=== PATIENT | female | born 1985 | race Two or more races ===

== ENCOUNTER 2016-06-04 17:15 | Emergency (ER) | payer OTHER ==
[2016-06-04 18:05] VITALS: BP 121/73
--- NOTE | 2016-06-04 18:36 | UC ---
FLU HPI - HPI Summary HPI Summary: THREE DAYS OF FEVER, COUGH RUNNY NOSE. FEVER 103.5F. PATIENTT IS 12 WEEKS . - History of Current Complaint Chief Complaint: UCGeneralIllness Stated Complaint: FEVER/CONGESTION/COUGH/ACHY 3 MONTHS PREG Time Seen by Provider: 06/04/16 18:08 Hx Obtained From: Patient Hx Last Menstrual Period: one week ago ?: Yes Onset/Duration: Sudden Onset, Lasting Days, Still Present Severity Currently: Moderate Severity Initially: Moderate Associated Signs & Symptoms: Positive: F/C, Cough, Nasal Congestion - Risk Factors Influenza Risk Factors: Negative - Allergy/Home Medications Allergies/Adverse Reactions: Allergies Allergy/AdvReac Type Severity Reaction Status Date / Time Eggs or Egg-derived Products Allergy Rash Verified 06/04/16 18:05 Sulfa Antibiotics Allergy Rash Verified 06/04/16 18:05 beets Allergy Altered Uncoded 06/04/16 18:05 Mental Status cherries Allergy Rash Uncoded 06/04/16 18:05 dairy Allergy Vomiting Uncoded 06/04/16 18:05 honey Allergy GI Upset Uncoded 06/04/16 18:05 Home Medications: Home Medications Vit W/ Ferrous Fumara [ Complete] 1 tab PO DAILY 06/04/16 [ History Confirmed 06/04/16] PMH/Surg Hx/FS Hx/Imm Hx Previously Healthy: Yes Endocrine History Of: Denies: Diabetes Cardiovascular History Of: Denies: Hypertension, Pacemaker/ICD, Congestive Heart Failure Respiratory History Of: Reports: Asthma Denies: COPD, Bronchitis, Pulmonary Embolism GI/ History Of: Denies: Gastroesophageal Reflux, Renal Disease Neurological History Of: Denies: TIA Psychological History Of: Denies: Anxiety Cancer History Of: Denies: Lung Cancer - Surgical History Surgical History: Yes Surgery Procedure, Year, and Place: umbilical hernia repair - Family History Known Family History: Positive: None - Social History Occupation: Employed Full-time Lives: With Family Alcohol Use: None Substance Use Type: None Smoking Status (MU): Never Smoked Tobacco Review of Systems Constitutional: Fever, Chills, Fatigue Skin: Negative Eyes: Negative ENT: Nasal Discharge Respiratory: Cough Cardiovascular: Negative Gastrointestinal: Negative Genitourinary: Negative Motor: Negative Neurovascular: Negative Musculoskeletal: Myalgia Neurological: Negative Psychological: Negative All Other Systems Reviewed And Are Negative: Yes Physical Exam Triage Information Reviewed: Yes Appearance: No Pain Distress, Well-Nourished, Ill-Appearing - MILD Vital Signs: Initial Vital Signs Temp 99.6 F 06/04/16 18:02 Pulse 130 06/04/16 18:02 Resp 16 06/04/16 18:02 BP 121/73 06/04/16 18:02 Pulse Ox 100 06/04/16 18:02 Vital Signs Reviewed: Yes Eye Exam: Normal ENT Exam: Normal ENT: Positive: Normal ENT inspection, Hearing grossly normal, Pharynx normal, TMs normal Dental Exam: Normal Neck exam: Normal Neck: Positive: Supple, Nontender, No Lymphadenopathy Respiratory Exam: Normal Respiratory: Positive: Chest non-tender, Lungs clear, Normal breath sounds, No respiratory distress, No accessory muscle use Cardiovascular Exam: Normal Cardiovascular: Positive: RRR, No Murmur, Pulses Normal Abdominal Exam: Normal Musculoskeletal Exam: Normal Musculoskeletal: Positive: Strength Intact Neurological Exam: Normal Psychological Exam: Normal Psychological: Positive: Normal Response To Family Skin Exam: Normal Flu Course/Dx - Differential Dx/Diagnosis Differential Diagnosis/HQI/PQRI: Influenza, RSV, Upper Respiratory Infection Provider Diagnoses: INFLUENZA. 12 WEEKS Discharge - Discharge Plan Condition: Stable Disposition: HOME Prescriptions: Oseltamivir CAP* [Tamiflu CAP*] 75 mg PO BID #10 cap Patient Education Materials: Influenza (ED) Referrals: Chidi Nicholas MD [Primary Care Provider] -
== END 2016-06-04 18:37 | disposition home or self-care (01) ==
LOC: UCCORT 17:15
DX: O26.891 Other specified pregnancy related conditions, first trimester (principal); J11.1 Influenza due to unidentified influenza virus with other respiratory manifestations; Z3A.14 14 weeks gestation of pregnancy; J45.909 Unspecified asthma, uncomplicated; Z88.2 Allergy status to sulfonamides
CPT/HCPCS: 87502; 99212; G0463

== ENCOUNTER 2016-07-12 11:56 | Emergency (ER) | payer OTHER ==
[2016-07-12 12:20] VITALS: BP 111/68
--- NOTE | 2016-07-12 12:31 | UC ---
Lower Extremity/Ankle HPI - HPI Summary HPI Summary: At work today pulled out a cutting board and a different one fell out and fell onto R foot. Pain over big toe and next two toes, also distal foot. - History of Current Complaint Chief Complaint: UCLowerExtremity Stated Complaint: FOOT INJURY Time Seen by Provider: 07/12/16 12:24 Hx Obtained From: Patient Hx Last Menstrual Period: 02/23/16 ?: Yes Onset/Duration: Sudden Onset Severity Initially: Moderate Severity Currently: Mild Aggravating Factor(s): Standing, Ambulation Alleviating Factor(s): Rest Able to Bear Weight: Yes Related History: Occupational Injury - Allergies/Home Medications Allergies/Adverse Reactions: Allergies Allergy/AdvReac Type Severity Reaction Status Date / Time Eggs or Egg-derived Products Allergy Rash Verified 06/04/16 18:05 Sulfa Antibiotics Allergy Rash Verified 06/04/16 18:05 beets Allergy Altered Uncoded 06/04/16 18:05 Mental Status cherries Allergy Rash Uncoded 06/04/16 18:05 dairy Allergy Vomiting Uncoded 06/04/16 18:05 honey Allergy GI Upset Uncoded 06/04/16 18:05 PMH/Surg Hx/FS Hx/Imm Hx Endocrine History Of: Denies: Diabetes, Thyroid Disease Cardiovascular History Of: Denies: Cardiac Disorders, Hypertension, Pacemaker/ICD, Congestive Heart Failure Respiratory History Of: Reports: Asthma Denies: COPD, Bronchitis, Pulmonary Embolism GI/ History Of: Denies: Gastroesophageal Reflux, Ulcer, Renal Disease Neurological History Of: Denies: TIA Psychological History Of: Denies: Anxiety Cancer History Of: Denies: Lung Cancer - Surgical History Surgical History: Yes Surgery Procedure, Year, and Place: umbilical hernia repair - Family History Known Family History: Positive: None - Social History Lives: With Family Alcohol Use: None Substance Use Type: None Smoking Status (MU): Never Smoked Tobacco Review of Systems Constitutional: Negative Skin: Negative Eyes: Negative ENT: Negative Respiratory: Negative Cardiovascular: Negative Gastrointestinal: Negative Genitourinary: Negative Motor: Negative Neurovascular: Negative Musculoskeletal: Arthralgia - R foot Neurological: Negative Psychological: Negative All Other Systems Reviewed And Are Negative: Yes Physical Exam Triage Information Reviewed: Yes Appearance: Well-Appearing, No Pain Distress, Well-Nourished Vital Signs: Initial Vital Signs Temp 98.6 F 07/12/16 12:07 Pulse 99 07/12/16 12:07 Resp 16 07/12/16 12:07 BP 111/68 07/12/16 12:07 Pulse Ox 100 07/12/16 12:07 Vital Signs Reviewed: Yes Eye Exam: Normal Eyes: Positive: Conjunctiva Clear ENT Exam: Normal ENT: Positive: Normal ENT inspection, Hearing grossly normal, Pharynx normal, TMs normal Dental Exam: Normal Neck exam: Normal Neck: Positive: Supple, Nontender, No Lymphadenopathy Respiratory Exam: Normal Respiratory: Positive: Chest non-tender, Lungs clear, Normal breath sounds, No respiratory distress, No accessory muscle use Cardiovascular Exam: Normal Cardiovascular: Positive: RRR, No Murmur Musculoskeletal Exam: Other - minimal tenderness over R toes 1-3 and MTs 1-3. No bruising or swelling. Neurological Exam: Normal Neurological: Positive: Alert Psychological Exam: Normal Skin Exam: Normal Lower Extremity Course/Dx - Differential Dx/Diagnosis Provider Diagnoses: R foot contusion Discharge - Discharge Plan Condition: Stable Disposition: HOME Patient Education Materials: Foot Contusion (ED) Forms: *Work Release Referrals: Chidi Nicholas MD [Primary Care Provider] -
--- NOTE | 2016-07-12 13:01 | RAD ---
HISTORY: Right foot, COMPARISONS: None VIEWS: 2, Frontal and lateral views of the right foot FINDINGS: BONE DENSITY: Normal. BONES: There is no displaced fracture. There are calcaneal enthesophytes JOINTS: There is no arthropathy. ALIGNMENT: There is no dislocation. SOFT TISSUES: Unremarkable. OTHER FINDINGS: None. IMPRESSION: NO ACUTE OSSEOUS INJURY. IF SYMPTOMS PERSIST, RECOMMEND REPEAT IMAGING.
== END 2016-07-12 13:08 | disposition home or self-care (01) ==
LOC: UCEAST 11:56
DX: S90.31XA Contusion of right foot, initial encounter (principal); W20.8XXA Other cause of strike by thrown, projected or falling object, initial encounter; Y93.9 Activity, unspecified; Y99.0 Civilian activity done for income or pay
CPT/HCPCS: 99212; G0463

== ENCOUNTER 2016-11-28 08:15 | Inpatient (IN) | payer OTHER ==
[2016-11-28] MEDS ORDERED: Oxytocin in LR* 20 UNITS/1,000 ML BAG IVPB ONE (19:53)
[2016-11-28] MEDS ORDERED: Oxytocin in LR* 20 UNITS/1,000 ML BAG IVPB SCH (20:00)
[2016-11-28 20:24] LABS: Hematocrit 31 % (35-47); Hemoglobin 10.6 g/dl (12.0-16.0); Mean Corpuscular HGB Conc 35 g/dl (31-36); Mean Corpuscular Hemoglobin 30 pg (27-31); Mean Corpuscular Volume 87 fL (80-97); Mean Platelet Volume 7 um3 (7.4-10.4); Red Blood Count 3.53 10^6/ul (4.0-5.4); Red Cell Distribution Width 14 % (10.5-15); White Blood Count 11.4 10^3/ul (3.5-10.8)
[2016-11-28] MEDS ORDERED: OBEPIDURAL* 250 ML ONE (23:42)
[2016-11-29] MEDS ORDERED: Phenylephrine IV* 40 MCG/ML 10 ML SYRINGE IV PUSH PRN ×2 (00:27)
[2016-11-29] MEDS ORDERED: Famotidine TAB* 20 MG PO PRN (00:27)
[2016-11-29] MEDS ORDERED: EPHEDrine (Pressors)* 50 MG/ML VIAL IV PUSH PRN (00:27)
[2016-11-29] MEDS ORDERED: Sodium Citrate/Citric Acid* 15 ML UDC PO PRN (00:27)
[2016-11-29] MEDS ORDERED: OBEPIDURAL* 250 ML EPIDURAL SCH (01:00)
[2016-11-29] MEDS ORDERED: Ibuprofen TAB* 600 MG PO PRN (04:50)
[2016-11-29] MEDS ORDERED: Witch Hazel PAD* JAR TOPICAL PRN (04:50)
[2016-11-29] MEDS ORDERED: Glycerin ADULT SUPP PR PRN (04:50)
[2016-11-29] MEDS ORDERED: Oxytocin in LR* 20 UNITS/1,000 ML BAG IVPB SCH (05:00)
[2016-11-29] MEDS: Acetaminophen TAB* 325 MG PO PRN ×3 (06:50→17:59)
[2016-11-29] MEDS ORDERED: Simethicone TAB* 80 MG TAB.CHEW PO SCH (08:30)
[2016-11-29] MEDS: Docusate CAP* 100 MG PO SCH ×3 (09:18→20:48)
[2016-11-29] MEDS: Dibucaine 1% 28.35 GM TUBE PR PRN (20:49)
[2016-11-30] MEDS: Acetaminophen TAB* 325 MG PO PRN ×3 (00:23→12:48)
[2016-11-30 06:35] LABS: Hematocrit 26 % (35-47); Hemoglobin 8.6 g/dl (12.0-16.0); Mean Corpuscular HGB Conc 34 g/dl (31-36); Mean Corpuscular Hemoglobin 30 pg (27-31); Mean Corpuscular Volume 89 fL (80-97); Mean Platelet Volume 7 um3 (7.4-10.4); Red Blood Count 2.89 10^6/ul (4.0-5.4); Red Cell Distribution Width 14 % (10.5-15); White Blood Count 10.7 10^3/ul (3.5-10.8)
[2016-11-30] MEDS ORDERED: Ferrous Gluconate TAB* 324 MG TAB PO SCH (09:00)
[2016-11-30] MEDS: Docusate CAP* 100 MG PO SCH (09:45)
[2016-11-30] MEDS ORDERED: RHO D Immune Globulin (HUMAN)* 300 MCG = 1,500 I.U. INJ IM ONE (11:31)
[2016-12-01] MEDS: Docusate CAP* 100 MG PO SCH ×3 (00:51→14:53)
[2016-12-01] MEDS: Acetaminophen TAB* 325 MG PO PRN (00:51)
[2016-12-01 08:25] VITALS: BP 102/69
[2016-12-01] MEDS: Dibucaine 1% 28.35 GM TUBE PR PRN (08:58)
== END 2016-12-01 18:40 | disposition home or self-care (01) | DRG 775 ==
LOC: MCHOBOUT 08:15 → MCHOB 08:46
PROVIDERS: ADMIT Midwife; ATTEND Midwife
PROC: 10E0XZZ Delivery of Products of Conception, External Approach (ICD-10-PCS; principal; 2016-11-28)
PROC: 0HQ9XZZ Repair Perineum Skin, External Approach (ICD-10-PCS; 2016-11-28)
DX: O48.0 Post-term pregnancy (principal); O99.344 Other mental disorders complicating childbirth; D64.9 Anemia, unspecified; F41.8 Other specified anxiety disorders; O70.0 First degree perineal laceration during delivery; F43.10 Post-traumatic stress disorder, unspecified; Z88.2 Allergy status to sulfonamides; Z91.012 Allergy to eggs; Z91.011 Allergy to milk products; O90.81 Anemia of the puerperium; Z3A.40 40 weeks gestation of pregnancy; Z37.0 Single live birth
CPT/HCPCS: 36415; 85025; 85461; 86850; 86900; 86901; A9270-GY; J2790

== ENCOUNTER 2017-02-23 10:31 | Day surgery (SDC) | payer OTHER ==
[~2017-02-23 10:31] MED LIST: Buffered Lidocaine 0.9% SYRIN* 5 ML/SYR SYRINGE INTRADERM ONE; Sodium Citrate/Citric Acid* 15 ML UDC PO ONE
[2017-02-23] MEDS ORDERED: Buffered Lidocaine 0.9% SYRIN* 5 ML/SYR SYRINGE ONE (10:33)
[2017-02-23] MEDS ORDERED: Sodium Citrate/Citric Acid* 15 ML UDC ONE (10:33)
[2017-02-23] MEDS ORDERED: Etomidate* 2 MG/ML 10 ML VIAL ONE (11:43)
[2017-02-23] MEDS ORDERED: fentaNYL* 50 MCG/ML 2 ML VIAL (100 MCG VIAL) ONE ×2 (11:43→12:27)
[2017-02-23] MEDS ORDERED: Rocuronium* 10 MG/ML VIAL ONE (11:43)
[2017-02-23] MEDS ORDERED: Bupivacaine 0.25% SDV* 30 ML ONE (11:49)
[2017-02-23] MEDS ORDERED: Bupivacaine 0.5% SDV PF* 10-30ML VIAL ONE (11:50)
[2017-02-23] MEDS ORDERED: Dexamethasone IV* 4 MG/ML 1 ML (4 MG) ONE (12:23)
[2017-02-23] MEDS ORDERED: Naloxone* 0.4 MG/ML 1 ML VIAL IV PRN (13:02)
[2017-02-23] MEDS ORDERED: Ondansetron INJ* 2 MG/ML VIAL IV PRN (13:02)
[2017-02-23] MEDS ORDERED: fentaNYL* 50 MCG/ML 2 ML VIAL (100 MCG VIAL) IV PRN (13:02)
[2017-02-23] MEDS ORDERED: oxyCODONE/Acetamin 5/325 MG* TAB ONE (13:08)
[2017-02-23 13:43] VITALS: BP 115/73
--- NOTE | 2017-02-24 00:50 | OP ---
DATE OF OPERATION: 02/23/17 - [facility] DATE OF : 81 SURGEON: James Briones MD ANESTHESIA: General endotracheal tube. PRE-OP DIAGNOSIS: Desires permanent sterilization. POST-OP DIAGNOSIS: Desires permanent sterilization. OPERATIVE PROCEDURE: Laparoscopic bilateral tubal ligation. COMPLICATIONS: None. FINDINGS: On exam under anesthesia, uterus was mid position. Both anterior bladder flap, cul-de-sac appeared normal. Both fallopian tubes and ovaries appeared normal. The liver surface was smooth. DESCRIPTION OF PROCEDURE: The patient identified, procedure identified as a laparoscopic bilateral tubal ligation. The patient was taken to the operating room, prepped and draped in the usual fashion in dorsal lithotomy position under general anesthesia. A small infraumbilical incision was made and Veress needle was inserted through this. The abdomen was insufflated to 15 mmHg. The Veress needle was removed and the trocar was inserted. The trocar was removed from the sheath and laparoscope was inserted and above findings were noted. A second incision was made 2 cm above the pubic symphysis in the midline and a second trocar was inserted under direct visualization. The bipolar Kleppinger cautery was inserted. The right fallopian tube was grasped in the mid portion, followed it out to its fimbriated ends and fulgurated x4. Same procedure was carried out on the left after following it out to its fimbriated ends. Good hemostasis was verified. All instruments were removed from the abdomen. The abdomen was deflated of CO2. The skin was closed with Indermil or skin glue. The sponge stick was removed from the vagina and the patient returned to the recovery room in stable condition. All sponge and instrument counts were correct. [id number]/[facility] #: [id number] [facility]
== END 2017-02-23 13:49 | disposition home or self-care (01) ==
LOC: OR 10:31
PROVIDERS: ATTEND Obstetrics & Gynecology
DX: Z30.2 Encounter for sterilization (principal); F32.9 Major depressive disorder, single episode, unspecified; J45.909 Unspecified asthma, uncomplicated; Z88.2 Allergy status to sulfonamides; Z91.012 Allergy to eggs; Z91.018 Allergy to other foods
CPT/HCPCS: 81025; A9270-GY; J1100; J3010